=== PATIENT | female | born 1995 | race Caucasian/White ===

== ENCOUNTER 2019-10-13 16:22 | Outpatient (CLI) | payer BC ==
--- NOTE | 2019-10-13 16:55 | CT ---
CT ABDOMEN NONCONTRAST CT PELVIS NONCONTRAST: (Urolithiasis protocol) DATE: 10/13/2019 HISTORY: 24-year-old outpatient female with right lower quadrant pain and fever. Patient is being sent to the emergency Department after telephone discussion with ER resident Dr. Helder Handley. Dr. Salcedo was notified of the results and that the patient was being sent to the ER. COMPARISON: None TECHNIQUE: IV injection of iodinated contrast media: None Oral contrast media: None FINDINGS: Other than for urolithiasis, the lack of IV and oral contrast limits the evaluation. There is especially difficult to identify the appendix because of relative lack of visceral fat, typi jonnathan for this age group. This is especially true in this case where there is severe right retroperitoneal fat stranding posterior to the ascending colon with moderate amount of fluid in the r ight upper paracolic gutter. This fluid is higher than serous density, approximately 18 Hounsfield units. There is at least one diverticulum in the ascending colon. The cecum is located within the pel leslie cavity, abutting the right ovary and abutting the right side of the uterine fundus. No high-grade inflammatory changes are visualized within the pelvic cavity or around the cecum. Lung bases are clear. No pneumoperitoneum. There is an IUD. Within the limitations of a noncontrast s can, no gross abnormality identified involving left kidney, adrenals, abdominal aorta, pancreas, liver, or spleen. There is fat stranding surrounding the lower pole of the right kidney, probably brad sing from the same process described above. There are no renal, ureteral, or bladder calculi. No hydronephrosis. IMPRESSION: 1. Severe inflammatory process in the right retroperitoneum, posterior to the ascending colon. The fl uid in the right paracolic gutter could be hemorrhage or pus. 2. No urolithiasis or obstructive uropathy.
== END 2019-10-13 16:23 | disposition home or self-care (01) ==
LOC: CT 16:22
PROVIDERS: ATTEND Family Medicine
DX: R10.31 Right lower quadrant pain (principal); K65.9 Peritonitis, unspecified
CPT/HCPCS: 74176

== ENCOUNTER 2019-10-13 16:49 | Inpatient (IN) | payer BC ==
[~2019-10-13 16:49] MED LIST: Iopamidol-370 76% 500 ML 1 ML ONE
[2019-10-13] MEDS ORDERED: MEROPENEM 1 GM/50 ML 1 GM in Premix Bag 1 BAG IVPB SCH (17:15)
[2019-10-13 17:20] LABS: #Eosinphils 0.1 thou/uL (0.0-0.7); #Lymphocytes 2.2 thou/uL (1.20-3.40); #Monocytes 0.8 thou/uL (0.11-0.59); #Neutrophils 8.5 thou/uL (1.40-6.50); %Basophils 0.2 % (0.0-1.0); %Eosinophils 0.6 % (0.0-10.0); %Lymphocytes 18.8 % (21.0-51.0); %Monocytes 6.8 % (0.0-10.0); %Neutrophils 73.6 % (42.0-75.0); Hemoglobin 13.6 g/dL (12.0-16.0); Mean Corpuscular Hemoglobin 30.1 pg (27.0-31.0); Mean Corpuscular Volume 88.6 fL (78.0-98.0); Mean Platelet Volume 7.5 fL (7.4-10.4); Platelet Count 241 thou/uL (130-400); RBC Distribution Width 11.5 % (11.5-14.5); Red Blood Cell (RBC) Count 4.51 mill/uL (4.20-5.40); White Blood Cell (WBC) Count 11.5 thou/uL (4.8-10.8)
[2019-10-13 17:38] LABS: ALT (SGPT) 8 U/L (8-55); AST (SGOT) 11 U/L (5-34); Albumin 4.4 g/dL (3.5-5.0); Alkaline Phosphatase 55 U/L (40-110); Anion Gap 10 mmol/L (10-20); BUN (Urea Nitrogen) 11 mg/dL (7.0-18.7); Bilirubin, Total 0.9 mg/dL (0.2-1.2); Calc. Creatinine Clearance 0 mL/min (70-130); Calcium 9.2 mg/dL (7.8-10.44); Carbon Dioxide 28 mmol/L (22-29); Chloride 102 mmol/L (98-107); Estimated GFR-MDRD Greater than 90; Globulin 3.2 g/dL (2.4-3.5); Glucose 91 mg/dL (70-105); Potassium 4.1 mmol/L (3.5-5.1); Protein, Total 7.6 g/dL (6.0-8.3); Sodium 136 mmol/L (136-145)
--- NOTE | 2019-10-13 20:27 | CT ---
CT ABDOMEN AND PELVIS WITH IV AND ORAL CONTRAST: 10/13/19 HISTORY: Right lower quadrant pain. Abnormal CT scan. COMPARISON: Noncontrast CT exam from earlier on the same date. FINDINGS: The lung bases are clear. Small cyst at the inferior pole of the right kidney is now evident. No acut e abnormalities of the solid organs evident. Follicles arise from the ovaries. Contraceptive device within the endometrial cavity. Urinary bladder is unremarkable. Now better demonstrated at the right colon is a circumferential soft tissue density mass, somewhat compromising the lumen of the mid right colon. The mass measures up to 3.2 cm in cran iocaudal length. Inflammation around the abnormality of the right colon projects posteriorly. A tiny pocket of gas is present along the expected posterior margin of the mid right colon in the area of ab normality and may be within a diverticulum. It is in the dependent portion of the colon at this point ; however, and should have filled with contrast. A contained microperforation is also possible. There is small amount of fluid and prominent fat stranding surrounding the gas pocket. The appendix has a normal appearance. IMPRESSION: Abnormality of the right colon has the appearance of a mucosal mass, neoplasm favored, with significa nt inflammation involving and surrounding the right colon mass. Tiny pocket of gas posteriorly could be within a diverticulum or may represent a contained microperforation. POS: BST
[2019-10-13] MEDS ORDERED: hydrALAZINE 20 MG/ML VIAL SLOW IVP PRN (21:58)
[2019-10-13] MEDS ORDERED: Promethazine HCl 25 MG/ML VIAL IM PRN (21:58)
[2019-10-13] MEDS ORDERED: Ondansetron PF 4 MG/2 ML Vial IVP PRN (21:58)
[2019-10-13] MEDS ORDERED: Dextrose 5% in Water 1,000 ML IV PRN (21:58)
[2019-10-13] MEDS ORDERED: Dextrose 50% Abboject 50 ML SYRINGE SLOW IVP PRN (21:58)
[2019-10-13] MEDS ORDERED: Morphine 2 MG/ML SYRINGE SLOW IVP PRN (21:58)
[2019-10-13] MEDS ORDERED: Morphine 4 MG/ML VIAL SLOW IVP PRN (21:58)
[2019-10-13 23:37] VITALS: BMI 21.7
[2019-10-13] MEDS: D5 1/2 NS w/20 mEq KCL 1,000 ML IV SCH (23:50)
[2019-10-14] MEDS: MEROPENEM 1 GM/50 ML 1 GM in Premix Bag 1 BAG IVPB SCH ×3 (01:12→18:37)
[2019-10-14 03:42] LABS: #Eosinphils 0.2 thou/uL (0.0-0.7); #Lymphocytes 2.5 thou/uL (1.20-3.40); #Monocytes 0.6 thou/uL (0.11-0.59); #Neutrophils 4.6 thou/uL (1.40-6.50); %Basophils 0.5 % (0.0-1.0); %Eosinophils 2.2 % (0.0-10.0); %Lymphocytes 31.5 % (21.0-51.0); %Monocytes 7.9 % (0.0-10.0); %Neutrophils 57.9 % (42.0-75.0); Hemoglobin 11.9 g/dL (12.0-16.0); Mean Corpuscular HGB CONC 34.1 g/dL (32.0-36.0); Mean Corpuscular Hemoglobin 30.3 pg (27.0-31.0); Mean Corpuscular Volume 88.8 fL (78.0-98.0); Mean Platelet Volume 7.1 fL (7.4-10.4); Platelet Count 203 thou/uL (130-400); RBC Distribution Width 11.4 % (11.5-14.5); Red Blood Cell (RBC) Count 3.92 mill/uL (4.20-5.40)
[2019-10-14 03:53] LABS: Anion Gap 10 mmol/L (10-20); BUN (Urea Nitrogen) 7 mg/dL (7.0-18.7); Calc. Creatinine Clearance 117 mL/min (70-130); Calcium 8.3 mg/dL (7.8-10.44); Carbon Dioxide 25 mmol/L (22-29); Chloride 106 mmol/L (98-107); Estimated GFR-MDRD Greater than 90; Glucose 101 mg/dL (70-105); Potassium 3.8 mmol/L (3.5-5.1); Sodium 137 mmol/L (136-145)
--- NOTE | 2019-10-14 04:43 | HP ---
CHIEF COMPLAINT: Abdominal pain. HISTORY OF PRESENT ILLNESS: Ms. Stokes is a 24-year-old previously healthy woman, who started to feel generally unwell yesterday afternoon. She went to bed, but continued to wake up through the night with low-grade fevers and some vague abdominal pain, which then localized to the right lower quadrant. She happened to have an appointment with her primary care physician and she kept that appointment and reported her the symptoms and had a noncontrast CT performed, which showed significant inflammation around the right colon. The appendix was not visualized, and the ER physician repeated the imaging with contrast. This showed significant inflammation around the right colon with a small focus of air, which could be in a diverticulum or could represent a microperforation. There was also significant circumferential thickening of the bowel in that region, worrisome for a mucosally based mass. The patient has no previous history of GI problems. She states she was a little bit constipated yesterday, but normally has regular bowel movements and does not have any history of diarrhea, nausea, vomiting, bloating, or chronic abdominal pain. She has occasionally seen a small amount of bleeding after the bowel movements, but only when she has to strain. No melena and no history of anemia or weight loss. She is otherwise healthy except for some jaw pain. She underwent surgery and some biopsies for this, and it showed some autoimmune type changes and her DOUG was positive and she is seeing a gas leak inspector for possible lupus, but is not on any medications for this. She does have a significant family history of colon cancer in her mother in her early 40s as well as uterine cancer. She is unaware of any genetic testing or history of Salvador syndrome in her family. Her sister also has thyroid cancer in her 20s. PAST MEDICAL HISTORY: Possible lupus. PAST SURGICAL HISTORY: Jaw surgery. SOCIAL HISTORY: She does not smoke or use illicit drugs. She drinks about two alcoholic drinks per week. FAMILY HISTORY: Colon cancer in her mother in her 40s as well as uterine cancer, and the mother's colon cancer was treated with a complete colectomy. Thyroid cancer in her sister in her 20s. OUTPATIENT MEDICATIONS: 1. Spironolactone for acne. 2. Meloxicam. ALLERGIES: SHE REPORTS AN ALLERGY TO PENICILLIN, BUT HAS TOLERATED MEROPENEM IN THE EMERGENCY ROOM. PHYSICAL EXAMINATION: VITAL SIGNS: Normal. GENERAL: Reveals a healthy-appearing young woman, in no acute distress. She is not jaundiced or toxic in appearance. She is not flushed or diaphoretic. She is able to move around without evidence of pain. HEENT: Unremarkable. NECK: Supple without lymphadenopathy or thyroid nodules. HEART: Regular in its rate and rhythm without murmurs, rubs, or gallops. LUNGS: Clear to auscultation bilaterally. She is able to take a deep breath without hesitation. ABDOMEN: Soft and nondistended. No palpable masses or hernias. She is moderately tender to palpation in the right lower greater than right upper quadrant with some referred tenderness to the right lower quadrant with palpation of the left side. She does not exhibit rigidity or guarding. She does have some rebound tenderness. EXTREMITIES: Warm and well perfused without edema. She has normal pedal pulses. NEURO: No focal deficits. PSYCHIATRIC: Alert, oriented, and appropriate. LABORATORY DATA: White count is mildly elevated. Other labs are unremarkable. IMAGING DATA: CT images are reviewed, and I agree with the written report. ASSESSMENT: Inflammatory mass versus possible malignancy with microperforation in the right colon. Malignancy would be very uncommon in a 24-year-old, but she does have a family history of early-onset colon cancer in her mother in her early 40s as well as uterine cancer, and her mother's history of requiring a complete colectomy for her colon cancer is suggestive of a diagnosis of Salvador syndrome. The patient is currently uncomfortable and clinically stable and is going to be admitted and treated with antibiotics. I am going to get Gastroenterology involved. Ultimately, she may well require a right colectomy, but I do not think this is urgent. A short course of antibiotics and reimaging of the colon could also be considered in this situation. Given the concern for microperforation, colonoscopy carries higher risk. The patient is going to check with her mother regarding any history of genetic testing or diagnoses genetic testing and the patient would require some time to return. If she responds well to the antibiotics, that may somewhat decrease the urgency of diagnostic maneuvers since she does not have any anemia or obstruction. Ideally, we would clarify her diagnosis before considering surgery, especially since a partial colectomy would likely be inappropriate in a patient with Salvador syndrome, but a complete colectomy would be inappropriate for inflammatory processes such as Crohn disease. Job ID: [id number]
[2019-10-14] MEDS ORDERED: Ondansetron PF 4 MG/2 ML Vial IVP PRN (08:38)
[2019-10-14] MEDS ORDERED: Acetaminophen 650 MG Suppository PR PRN (08:39)
[2019-10-14] MEDS ORDERED: Acetaminophen 325 MG TAB PO PRN (08:39)
[2019-10-14] MEDS: Famotidine/PF 20 mg/2ml Vial SLOW IVP SCH ×2 (09:07→21:52)
[2019-10-14] MEDS: D5 1/2 NS w/20 mEq KCL 1,000 ML IV SCH ×2 (09:07→19:27)
--- NOTE | 2019-10-14 10:43 | CON ---
DATE OF CONSULTATION: 10/14/2019 REQUESTING PHYSICIAN: Dr. Koch. REASON FOR CONSULTATION: Abnormal CT of the right colon. HISTORY OF PRESENT ILLNESS: Katya Stokes is a very pleasant 24-year-old woman. She is generally healthy, though, she is undergoing some workup for possible autoimmune disease, possibly lupus. She evidently had a negative DOUG, and had a biopsy of her jaw which suggested such, but she is not taking any lupus specific medications. Interestingly, her mother has lupus and also was diagnosed with colon cancer in her 40s as well as uterine cancer in her 40s. She has a sister with thyroid cancer in her 20s. She has no chronic gastrointestinal symptoms. She was doing really well until a couple of nights ago. She started having low-grade fevers as well as generalized abdominal pain. This became more severe and then localized to the right lower quadrant over the course of the day. She was admitted to the hospital yesterday. On presentation, she did have a mild leukocytosis and a CT of the abdomen and pelvis demonstrates an abnormality in the right colon, which appears masslike measuring up to 3.2 cm with a lot of surrounding inflammation. Neoplastic process is actually favored on the imaging, versus severe inflammatory process. In addition, there is a tiny pocket of gas posteriorly, which may represent a contained microperforation versus diverticulum. This morning, she is afebrile, but she is nauseated and had some dry heaves. She has not had any diarrhea through all of this. Her bowel movements are generally normal and regular. She will occasionally have some bright red blood on the toilet paper, but this is nothing new. Abdominal discomfort persists, but is mild right now. She was started on meropenem. REVIEW OF SYSTEMS: Full review of systems including constitutional, head, eyes, ears, nose, throat, GI, , cardiovascular, respiratory, musculoskeletal, neurologic systems is negative except as noted in the HPI. PAST MEDICAL HISTORY: Possible lupus. PAST SURGICAL HISTORY: Jaw surgery. SOCIAL HISTORY: No smoking or drug use. Alcohol use is occasional, two drinks per week. FAMILY HISTORY: Her mother had colon cancer and uterine cancer, both diagnosed in her 40s. Her mother had a complete colectomy. Her mother also has lupus. Her sister had thyroid cancer in her 20s. ALLERGIES: PENICILLIN. OUTPATIENT MEDICATIONS: 1. Spironolactone. 2. Meloxicam. INPATIENT MEDICATIONS: 1. Famotidine 20 mg IV q.12 hours. 2. Meropenem 1 g q.8 hours. 3. Morphine p.r.n. 4. Zofran p.r.n. PHYSICAL EXAMINATION: VITAL SIGNS: Temperature 97.6, pulse 86, blood pressure 88/53, 97% oxygen saturation on room air. GENERAL: A 24-year-old woman, sitting up in bed comfortably, in no distress. SKIN: No jaundice. No rashes were palpable. HEENT: Eyes; no scleral icterus. Extraocular movements intact. ENT; mucous membranes moist. No oral lesions. LYMPH: No submandibular or supraclavicular lymphadenopathy. THYROID: Nontender to palpation. HEART: Regular rate and rhythm. LUNGS: Clear to auscultation bilaterally. ABDOMEN: Flat, nondistended. Bowel sounds are present. Soft. She is tender to palpation in the right abdomen, but there is no guarding or rebound tenderness. No peritoneal signs. EXTREMITIES: No peripheral edema. VESSELS: Radial pulses 2+ bilaterally. NEUROLOGIC: Cranial nerves 2 through 12 intact bilaterally. No focal deficits. LABORATORY STUDIES: WBC 8.0, hemoglobin 11.9, platelets 203. Sodium 137, potassium 3.8, BUN 7, creatinine 0.68. Lactic acid 0.7. Calcium 8.3. CEA only 1.53. Total bilirubin 0.9, alkaline phosphatase 55, AST 11, ALT 8. Albumin 4.4. IMAGING STUDIES: CT of the abdomen and pelvis demonstrates a circumferential soft tissue density mass, somewhat compromising the lumen of the mid right colon. It measures up to 3.2 cm. There is inflammation around this abnormality and a tiny pocket of gas on the posterior margin of the mid right colon, representing diverticulum versus contained microperforation. Appendix appears normal. ASSESSMENT/PLAN: 1. Inflammatory mass in the right colon, with possible microperforation. 2. Right-sided abdominal pain, secondary to the above. 3. Nausea and vomiting. 4. Family history of colon cancer, in her mother at an early age. I discussed the case with the patient and with Dr. Koch. The imaging findings are concerning for possible neoplastic process, which would certainly be unusual at her age, but certainly with this family history of colon cancer in a first-degree relative at an early age, it does need to be definitively ruled out. 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 Other possibilities would be an acute infectious process, though, I note the absence of diarrhea up to this point. With no chronic symptoms, I feel onset of inflammatory bowel disease is a bit less likely. The patient is going to need a diagnostic colonoscopy, but I agree that with possible current microperforation, this would entail significant risk of worsening the process at this time. I agree with the plan to treat with antibiotics, continue supportive care, can start clear liquids today and see how she tolerates. If she does well, repeat CT imaging at a short interval, perhaps in 1 week. If there is no evidence of free air, then we could proceed with colonoscopy as soon as feasible. 5. Genetic testing would also be a consideration, but I doubt we would get back any clear results prior to a colonoscopy anyway. The results would not change the need for colonoscopy either way. Thank you for the consultation. We will follow along with you. Please call anytime with questions or concerns. Job ID: [id number]
--- NOTE | 2019-10-14 12:10 | PDOC.GSPN ---
Surgery Progress Note: Subj - Subjective Narrative: Patient feels better this morning. She had some nausea earlier today but that has resolved and she is tolerating clear liquids. Dr. Post has seen her and agrees with the plan to manage her medically for now with plans for reimaging, genetic testing and close interval colonoscopy. She has been afebrile since admission and her white count has normalized. Her abdomen is willow machine tender in the right lower quadrant but less than yesterday and with no right upper quadrant tenderness and minimal referred tenderness with palpation of the left lower quadrant. We will continue with medical management for now. If she continues to respond well, we will transition her to oral antibiotics and plan for repeat CT in about a week. Surgery Progress Note: Obj - Vital signs Vital signs: Vital Signs - Most Recent Temp Pulse Resp BP Pulse Ox 97.6 F 86 14 88/53 L 98 10/14/19 04:00 10/14/19 04:00 10/14/19 04:00 10/14/19 04:00 10/14/19 08:00 Surgery Progress Note: Results - Labs Result Diagrams: 10/14/19 03:24 10/14/19 03:24 Lab results: Laboratory Results - last 24 hr 10/14/19 10/14/19 10/14/19 03:24 03:24 03:24 WBC 8.0 RBC 3.92 L Hgb 11.9 L Hct 34.8 L MCV 88.8 MCH 30.3 MCHC 34.1 RDW 11.4 L Plt Count 203 MPV 7.1 L Neutrophils % 57.9 Lymphocytes % 31.5 Monocytes % 7.9 Eosinophils % 2.2 Basophils % 0.5 Neutrophils # 4.6 Lymphocytes # 2.5 Monocytes # 0.6 H Eosinophils # 0.2 Basophils # 0.0 Sodium 137 Potassium 3.8 Chloride 106 Carbon Dioxide 25 Anion Gap 10 BUN 7 Creatinine 0.68 Estimated GFR (MDRD) Greater than 90 Glucose 101 Calcium 8.3 Carcinoembryonic Ag 1.53
[2019-10-15] MEDS: MEROPENEM 1 GM/50 ML 1 GM in Premix Bag 1 BAG IVPB SCH ×4 (02:07→22:18)
[2019-10-15] MEDS: D5 1/2 NS w/20 mEq KCL 1,000 ML IV SCH ×3 (03:48→20:11)
--- NOTE | 2019-10-15 09:07 | PDOC.GSPN ---
Surgery Progress Note: Subj - Subjective Narrative: Patient continues to improve. She does not have any abdominal pain now unless she pushes on her abdomen or moves around a lot. No nausea or vomiting. Tolerating a full liquid diet. Afebrile. Abdomen is soft and nondistended with very minimal tenderness in the right lower quadrant, much improved from admission. Assessment/plan: Colitis of uncertain origin, possibly with underlying mass. Responding to medical management with resolution of leukocytosis and fever. Almost pain-free. We will continue with 1 more day of IV antibiotics, and then likely switch to oral antibiotics tomorrow and consider discharge. She will need short interval follow-up CT and colonoscopy. Will advance diet to regular. Surgery Progress Note: Obj - Vital signs Vital signs: Vital Signs - Most Recent Temp Pulse Resp BP Pulse Ox 97.8 F 87 16 98/50 L 100 10/15/19 07:38 10/15/19 07:38 10/15/19 07:38 10/15/19 07:38 10/15/19 07:39 Surgery Progress Note: Results - Labs Result Diagrams: 10/14/19 03:24 10/14/19 03:24
[2019-10-15] MEDS: Famotidine/PF 20 mg/2ml Vial SLOW IVP SCH ×2 (09:10→21:05)
[2019-10-16] MEDS: D5 1/2 NS w/20 mEq KCL 1,000 ML IV SCH (04:24)
[2019-10-16] MEDS: MEROPENEM 1 GM/50 ML 1 GM in Premix Bag 1 BAG IVPB SCH (05:09)
--- NOTE | 2019-10-16 08:21 | PRG ---
DATE OF SERVICE: 10/15/2019 SUBJECTIVE: Ms. Stokes states she is feeling better. The nurses note she is eating. OBJECTIVE: VITAL SIGNS: Temperature max 98.2, blood pressure 98 to 90 over 60 to 62. GENERAL: She is resting comfortably in bed. She is frail and thin. LUNGS: Clear. HEART: Regular rate and rhythm. ABDOMEN: Tender. She has voluntary guarding. LABORATORY DATA: None. ASSESSMENT: Presentation with acute abdominal pain. Denies any antecedent symptoms. She has a CT showing mucosal mass favoring neoplasia in the right colon with some inflammatory changes. There is concern for either diverticular type perforation. She has a family history of her mother who had colon cancer and uterine cancer and her sister had thyroid cancer. This is highly suspicious for Salvador syndrome. PLAN: As per General Surgery. Definitely if she improves, we can consider a colonoscopy in the next several weeks. I think there is a very good chance she is going to end up needing an operation. However, the patient understands if she ends up going home tomorrow and she has any recurrence of pain, she will need to return to the emergency room immediately. Otherwise, if she goes home, Dr. Post will coordinate care from a GI standpoint. Job ID: [id number]
[2019-10-16 08:27] VITALS: BP 106/51; TEMP 98.4
[2019-10-16] MEDS ORDERED: Famotidine 20 MG TAB PO SCH (09:00)
[2019-10-16] MEDS ORDERED: Ciprofloxacin 500 MG TAB PO SCH ×2 (09:45→20:00)
--- NOTE | 2019-10-16 11:39 | PRG ---
DATE OF SERVICE: 10/16/2019 SUBJECTIVE: Ms. Stokes feels better. She is tolerating her diet. She has been switched over to p.o. antibiotics to make sure she can tolerate those before being discharged. She states she is to see Dr. Koch back in a week. MEDICATIONS: 1. She has been switched to p.o. Flagyl and Cipro. 2. Spironolactone 50 mg daily. 3. Meloxicam 7.5 mg daily. 4. Tylenol p.r.n. OBJECTIVE: VITAL SIGNS: Temperature 98, pulse 82, blood pressure 106/51. ABDOMEN: Soft, much less tender today. No voluntary or involuntary guarding. Abdomen is nondistended. LABORATORY DATA: None. ASSESSMENT: 1. Ascending colon mass on CT, questionable area of diverticular colon, admitted with pain, now resolved with antibiotics. Differential diagnosis per previous notes. Malignancy is of high concern in light of family history. Crohn's or simple colon infection or diverticular infection is possible as well, but a little bit atypical in this age group. 2. Family history of colon cancer in her mother and uterine cancer in her mother and thyroid cancer in a sister. PLAN: 1. As per General Surgery, she is going to go home today if she tolerates p.o. antibiotics. I have informed the patient if she has worsening pain, fever, discomfort, she needs to come back to the hospital for readmission. 2. I have made an appointment to have her see Dr. Post, primary gastrologist, next Saturday at 3:45 p.m. As she continues to improve, I will set up repeat imaging, colonoscopy in the next couple of weeks. Job ID: [id number]
[2019-10-16] MEDS ORDERED: metroNIDAZOLE 500 MG TAB PO SCH (15:00)
--- NOTE | 2019-10-19 10:46 | PQF ---
LISETH DAMIAN CHRISTOPHER J MD [id number] CLINICAL DOCUMENTATION CLARIFICATION FORM: POST DISCHARGE Addendum to original discharge summary date: ____ Late entry note date: __ DATE: 10/19/2019 ATTN:Antonio Delgado Please exercise your independent, professional judgment in responding to the clarification form. Clinical indicators are provided on the bottom of this form for your review Based on your clinical judgment, can you please specify etiology of patient's abdominal pain? Please check appropriate box(s): [ ] Colitis [ ] Diverticular of colon [ ] Other diagnosis [ ] Unable to determine For continuity of documentation, please document condition throughout progress notes and discharge summary. Thank You. CLINICAL INDICATORS - SIGNS / SYMPTOMS / LABS HP 10/12 "CC:abdominal pain" PN 10/15 "colitis" PN 10/15 "malignancy is high concern" PN 10/15 "Cronh's or simple colon infection or diverticular infection is possible" Consult 10/13 "inflammatory mass in the right colon with possible microperforation" HP 10/12 "inflammatory mass versus possible malignancy with microperforation in the right colon" Abdomen CT 10/12 "neoplasm favored with significant inflammation involving and surrounding the right colon mass" Abdomen CT 10/12 "diverticulum" Labs WBC: 10/12=11.5 10/13=8.0 RISK FACTORS Family history of colon cancer-HP 10/12 TREATMENTS: CT of abdomen-Collected 10/12 IVF-JUL 16 Morphine 4mg IV-JUL 16 Merrem 1gm IV-JUL 16 (This form is maintained as a part of the permanent medical record) 2014 [employer] All Rights Reserved [email or web address]
== END 2019-10-16 12:48 | disposition home or self-care (01) | DRG 392 ==
LOC: ERS 16:49 → ONC 20:28
PROVIDERS: ADMIT Surgery; ATTEND Surgery
DX: K52.9 Noninfective gastroenteritis and colitis, unspecified (principal); Z88.0 Allergy status to penicillin; Z79.891 Long term (current) use of opiate analgesic
CPT/HCPCS: 36415; 74176; 74177; 80048; 80053; 82378; 83605; 83630; 85025; 86850; 86900; 86901; 87045; 87046; 87324; 87427; 87449; 96361; 96365; J2185; J2270; J2405; J3480; Q9967; S0028

== ENCOUNTER 2019-10-26 08:11 | Outpatient (CLI) | payer BC ==
--- NOTE | 2019-10-26 10:41 | CT ---
ABDOMEN AND PELVIC CT SCAN WITH IV CONTRAST: HISTORY: R10.31. R93.5. Followup abnormal CT, right lower quadrant pain. COMPARISON: 10/13/2019. FINDINGS: Lung bases appear clear. The liver, gallbladder, pancreas, spleen, and adrenal glands are unremarkab le. No evidence for renal calculus or acute obstruction. Small right renal lower pole cyst. The previously noted fairly extensive inflammatory changes in the right lower quadrant surrounding th e right colon and cecum have almost completely resolved and very markedly improved. There is a poste rior right colon diverticulum with a tiny amount of fat stranding around the diverticulum. No eviden ce for abnormal fluid collection or abscess. IUD in lace within the uterus. IMPRESSION: Very marked improvement and almost total resolution of the previously noted pericolonic right lower q uadrant stranding and inflammation and infection change. Tiny amount of eugene-diverticulum fat strand ing around the posterior right colon diverticulum. No evidence for other acute process. There is so me very minute fat stranding around a posterior diverticulum involving the right colon. POS: RRE
== END 2019-10-26 08:12 | disposition home or self-care (01) ==
LOC: SCSCT 08:11
PROVIDERS: ATTEND Surgery
DX: R10.31 Right lower quadrant pain (principal); R93.5 Abnormal findings on diagnostic imaging of other abdominal regions, including retroperitoneum; K63.89 Other specified diseases of intestine
CPT/HCPCS: 74177

== ENCOUNTER 2020-06-07 12:27 | Outpatient (CLI) | payer OTHER ==
--- NOTE | 2020-06-07 13:41 | CT ---
CT of the face: 06/07/2020 COMPARISON: None HISTORY: History of temporomandibular joint pain with prior surgery TECHNIQUE: Axial CT imaging obtained at 2.5 mm intervals through the facial bones with coronal and sa gittal reformatted imaging. 3-D rendering obtained FINDINGS: The frontal sinuses, ethmoid air cells, and bilateral mastoid air cells are well-aerated. T here is mucosal thickening involving the pterygoid recess of the right sphenoid sinus and there is mild mucosal thickening involving the alveolar recess of the right maxillary sinus. The left maxillar y sinus and sphenoid sinus are clear. Neither temporomandibular joint is dislocated. There is flattening of the mandibular condyle bilatera lly with degenerative irregularity involving the anterior aspect of bilateral mandibular condyles, best seen on coronal imaging. Class II malocclusion. Partially imaged brain parenchyma appears grossly unremarkable. No acute osseous abnormality. No lyti c or blastic bone lesion. 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 No acute osseous abnormality. Clas s II malocclusion.
== END 2020-06-07 12:28 | disposition home or self-care (01) ==
LOC: BICCT 12:27 → CT 12:28
DX: M26.643 Arthritis of bilateral temporomandibular joint (principal)
CPT/HCPCS: 70486; 76377

== ENCOUNTER 2020-08-09 15:09 | Outpatient (CLI) | payer OTHER ==
[2020-08-09 18:29] LABS: Hemoglobin 12.5 g/dL (12.0-16.0); Mean Corpuscular HGB CONC 33.8 g/dL (32.0-36.0); Mean Corpuscular Volume 88.6 fL (78.0-98.0); Mean Platelet Volume 7.4 fL (7.4-10.4); Platelet Count 236 thou/uL (130-400); RBC Distribution Width 11.5 % (11.5-14.5); Red Blood Cell (RBC) Count 4.17 mill/uL (4.20-5.40); White Blood Cell (WBC) Count 7.3 thou/uL (4.8-10.8)
[2020-08-09 18:34] LABS: ALT (SGPT) 10 U/L (8-55); AST (SGOT) 11 U/L (5-34); Albumin 4.3 g/dL (3.5-5.0); Alkaline Phosphatase 49 U/L (40-110); Anion Gap 9 mmol/L (10-20); BUN (Urea Nitrogen) 14 mg/dL (7.0-18.7); Bilirubin, Total 0.5 mg/dL (0.2-1.2); CRP (Inflammatory) Less than 0.50 mg/dL (= or < 0.5); Calc. Creatinine Clearance 0 mL/min (70-130); Calcium 8.8 mg/dL (7.8-10.44); Carbon Dioxide 28 mmol/L (22-29); Chloride 107 mmol/L (98-107); Globulin 2.5 g/dL (2.4-3.5); Glucose 92 mg/dL (70-105); Potassium 3.7 mmol/L (3.5-5.1); Protein, Total 6.8 g/dL (6.0-8.3); Sodium 140 mmol/L (136-145)
[2020-08-09 18:52] LABS: HBSAg Index 0.24 S/CO (0-0.99); Hep B Core Total Ab Non-Reactive (NonReactive); Hep B Core Total Index 0.07 S/CO (0-0.79); Hep B Surf Ag Non-Reactive S/CO (NonReactive); Hep C IgG Ab Non-Reactive (NonReactive); Hep C Index 0.25 S/CO (0-0.79)
[2020-08-09 18:55] LABS: HBSAB Concentration 24.61 mIU/mL; Hep B Surf AB Reactive (NonReactive)
[2020-08-09 20:08] LABS: Follow-up Chemistry Comp? YES; Follow-up Result - Chemistry REPORT FAXED
[2020-08-13 19:13] LABS: QuantiFERON-TB Gold Plus Negative (Negative)
== END 2020-08-09 15:10 | disposition home or self-care (01) ==
LOC: SCSRAD 15:09
DX: M19.041 Primary osteoarthritis, right hand (principal)
CPT/HCPCS: 36415; 80053; 85027; 85652; 86140; 86480; 86704; 86706; 86803; 87340

== ENCOUNTER 2023-10-23 19:08 | Emergency (ER) | payer BC ==
[2023-10-23 20:02] LABS: Bacteria/HPF None Seen HPF (None Seen); Bilirubin Negative (Negative); Blood, Urine Trace (Negative); CAUTI Indications for Culture Dysuria,urgency,freq; Clarity Clear (Clear); Glucose, Urine (Dipstick) Normal (Negative); Ketone, Urine Negative (Negative); Leukocyte Negative Leu/uL (Negative); Nitrite Negative (Negative); Protein, Urine (Dipstick) 30 mg/dL (Neg-Trace); Specific Gravity, Urine 1.032 (1.002-1.036); Squamous Epithelial 0-3 HPF (0-3); Urobilinogen 6 mg/dL (Less than 2); WBC/HPF 0-3 HPF (0-3)
[2023-10-23 20:03] LABS: Amphetamine Not Detected (NotDetected); Barbiturates Screen Not Detected (NotDetected); Benzodiazepine Screen Not Detected (NotDetected); Cocaine Metabolite Screen Not Detected (NotDetected); Methadone Not Detected (NotDetected); Methamphetamine Not Detected (NotDetected); Opiate Screen Not Detected (NotDetected); Oxycodone Screen Not Detected (NotDetected); Phencyclidine (PCP) Not Detected (NotDetected); THC/Cannabinoid Screen Not Detected (NotDetected); Tricyclic Screen Not Detected (NotDetected)
[2023-10-23 20:06] LABS: Pregnancy Test - Urine (BHCG) Negative (Negative); Pregu Control Background? CLEAR/WHITE (CLR/WHITE); Pregu Control Bar Appear? YES (CONTROL BAR); Specific Gravity 1.032 (1.002-1.036)
[2023-10-23 20:07] LABS: Urine Culture Reflex No No
[2023-10-23] MEDS ORDERED: LORazepam 2 MG/ML SYR.(CARPUJECT) ONE (20:30)
[2023-10-23 20:59] LABS: #Basophils 0.03 10x3/uL (0.0-0.2); %Basophils 0.2 % (0.0-1.0); %Eosinophils 0.4 % (0.0-10.0); %Lymphocytes 11.2 % (21.0-51.0); %Neutrophils 80.8 % (42.0-75.0); Hematocrit 34.5 % (36.0-47.0); Mean Corpuscular HGB CONC 34.8 g/dL (32.0-36.0); Mean Corpuscular Hemoglobin 30.2 pg (27.0-31.0); Mean Corpuscular Volume 86.7 fL (78.0-98.0); Mean Platelet Volume 9.6 fL (7.4-10.4); Platelet Count 239 10x3/uL (130-400); RBC Distribution Width 13.4 % (11.5-14.5); Red Blood Cell (RBC) Count 3.98 mill/uL (4.20-5.40)
[2023-10-23 21:12] LABS: Alcohol Less than 10.0 mg/dL (Less than 10)
[2023-10-23 21:15] LABS: ALT (SGPT) 11 U/L (8-55); AST (SGOT) 13 U/L (5-34); Acetaminophen Less than 10 mcg/mL (10.0-30.0); Albumin 3.8 g/dL (3.5-5.0); Alcohol Less than 10.0 mg/dL (Less than 10); Alkaline Phosphatase 51 U/L (40-110); Anion Gap 16 mmol/L (10-20); BUN (Urea Nitrogen) 10 mg/dL (7.0-18.7); Calc. Creatinine Clearance 0 mL/min (70-130); Calcium 8.7 mg/dL (7.8-10.44); Carbon Dioxide 15 mmol/L (22-29); Chloride 107 mmol/L (98-107); Estimated GFR 85; Glucose 111 mg/dL (70-105); Potassium 3.3 mmol/L (3.5-5.1); Protein, Total 6.8 g/dL (6.0-8.3); Salicylate Less than 8.0 mg/dL (15.0-30.0); Sodium 135 mmol/L (136-145)
[2023-10-23] MEDS ORDERED: Ondansetron PF 4 MG/2 ML Vial ONE (22:31)
== END 2023-10-23 23:59 | disposition home or self-care (01) ==
LOC: ERS 19:08
DX: T43.291A Poisoning by other antidepressants, accidental (unintentional), initial encounter (principal)
CPT/HCPCS: 36415; 71045; 80053; 80306; 80307; 81001; 81025; 85025; 93005; 96374; 96375; J2060; J2405